=== PATIENT | female | born 1975 | race Caucasian/White ===

== ENCOUNTER 2018-06-01 04:08 | Emergency (ER) | payer MEDICAID, OTHER ==
[~2018-06-01] VITALS: Ht 149.9 cm; Wt 76.4 kg
[2018-06-01 04:10] VITALS: Ht 149.9 cm; Wt 76.4 kg
[2018-06-01] MEDS ORDERED: SOD CHLORIDE 0.9% 1,000 ML IV STA (04:52)
[2018-06-01] MEDS ORDERED: morphine 4 MG/ML VIAL IV STA (04:52)
[2018-06-01] MEDS ORDERED: ONDANSETRON 4 MG INJ IV STA (04:52)
[2018-06-01] MEDS ORDERED: ALKA PO (05:30)
[2018-06-01] MEDS ORDERED: HYDR-4011 PO (05:30)
[2018-06-01] MEDS ORDERED: IBUP-1545 PO (05:30)
--- NOTE | 2018-06-01 05:42 | ERD ---
ER Documentation Chief Complaint Chief Complaint L flank pain rad to abd w/ n/v since 1AM HPI This is a very pleasant 42-year-old female has left flank pain rating to the abdomen with nausea vomiting since 9 AM. Pain is mild to moderate in nature, colicky in nature with no exacerbating alleviating factors and came on suddenly late. Patient denies ever having this pain before. ROS All systems reviewed and are negative except as per history of present illness. Medications Home Meds Reported Medications Aspirin ([place]) 1 Tab Tabef, 1 TAB PO, TAB 06/01/18 Ibuprofen* (Ibuprofen*) 800 Mg Tab, 800 MG PO Q6H PRN for PAIN, TAB 06/01/18 Ibuprofen* (Ibuprofen*) 800 Mg Tab, 800 MG PO Q6H PRN for PAIN, TAB 06/01/18 Hydrocodone/Acetaminophen ([place] 5-325 Tablet) 1 Each Tablet, 1 EACH PO, TAB 06/01/18 Allergies Allergies: Coded Allergies: No Known Allergy (Unverified , 06/01/18) PMhx/Soc Medical and Surgical Hx: pt denies Medical Hx History of Surgery: Yes ( x2) Anesthesia Reaction: No Hx Neurological Disorder: No Hx Respiratory Disorders: No Hx Cardiac Disorders: No Hx Miscellaneous Medical Probl: No Hx Alcohol Use: No Hx Substance Use: No Hx Tobacco Use: No Smoking Status: Never smoker Physical Exam Vitals Vital Signs Date Temp Pulse Resp B/P (MAP) Pulse Ox O2 O2 Flow FiO2 Time Delivery Rate 06/01/18 97.5 93 18 137/91 100 04:10 (106) Physical Exam Const: No acute distress Head: Atraumatic Eyes: Normal Conjunctiva ENT: Normal External Ears, Nose and Mouth. Neck: Full range of motion. No meningismus. Resp: Clear to auscultation bilaterally Cardio: Regular rate and rhythm, no murmurs Abd: Soft, non tender, non distended. Normal bowel sounds Skin: No petechiae or rashes Back: No midline or flank tenderness Ext: No cyanosis, or edema Neur: Awake and alert Psych: Normal Mood and Affect Result Diagram: 06/01/18 0505 06/01/18 0505 Results 24 hrs Laboratory Tests Test 06/01/18 05:05 White Blood Count 11.4 10^3/ul Red Blood Count 4.25 10^6/ul Hemoglobin 13.2 g/dl Hematocrit 38.4 % Mean Corpuscular Volume 90.4 fl Mean Corpuscular Hemoglobin 31.1 pg Mean Corpuscular Hemoglobin Concent 34.4 g/dl Red Cell Distribution Width 12.2 % Platelet Count 299 10^3/UL Mean Platelet Volume 9.7 fl Immature Granulocytes % 0.300 % Neutrophils % 81.4 % Lymphocytes % 13.2 % Monocytes % 4.4 % Eosinophils % 0.3 % Basophils % 0.4 % Nucleated Red Blood Cells % 0.0 /100WBC Immature Granulocytes # 0.030 10^3/ul Neutrophils # 9.3 10^3/ul Lymphocytes # 1.5 10^3/ul Monocytes # 0.5 10^3/ul Eosinophils # 0.0 10^3/ul Basophils # 0.0 10^3/ul Nucleated Red Blood Cells # 0.0 10^3/ul Urine Color YELLOW Urine Clarity CLEAR Urine pH 6.0 Urine Specific [place] 1.016 Urine Ketones NEGATIVE mg/dL Urine Nitrite NEGATIVE mg/dL Urine Bilirubin NEGATIVE mg/dL Urine Urobilinogen NEGATIVE mg/dL Urine Leukocyte Esterase NEGATIVE Ziggy/ul Urine Microscopic RBC 153 /HPF Urine Microscopic WBC 3 /HPF Urine Squamous Epithelial Cells FEW /HPF Urine Mucus FEW /HPF Urine Hemoglobin 3+ mg/dL Urine Glucose NEGATIVE mg/dL Urine Total Protein NEGATIVE mg/dl Sodium Level 144 mmol/L Potassium Level 4.7 mmol/L Chloride Level 104 mmol/L Carbon Dioxide Level 30 mmol/L Anion Gap 10 Blood Urea Nitrogen Pending Creatinine Pending Est Glomerular Filtrat Rate mL/min Pending Glucose Level Pending Calcium Level Pending Total Bilirubin Pending Direct Bilirubin Pending Indirect Bilirubin Pending Aspartate Amino Transf (AST/SGOT) Pending Alanine Aminotransferase (ALT/SGPT) Pending Alkaline Phosphatase Pending Total Protein Pending Albumin Pending Globulin Pending Albumin/Globulin Ratio Pending Lipase Pending Current Medications Medications Dose Sig/[place] Start Time Status Last (Trade) Ordered Route PRN Stop Time Admin Dose Reason Admin Sodium 1,000 ml @ Q1H STAT 06/01/18 06/01/18 Chloride 1,000 mls/hr IV 04:52 06/01/18 05:08 05:51 Morphine 4 mg ONCE STAT 06/01/18 DC 06/01/18 Sulfate IV 04:52 1/2/19 05:08 (morphine) 04:54 Ondansetron 4 mg ONCE STAT 06/01/18 DC 06/01/18 HCl (Zofran IV 04:52 06/01/18 05:08 Inj) 04:54 Procedures/MDM Medical decision m[age]-year-old female with likely renal colic at this point clinically stable for outpatient management. Patient will be discharged home with Naprosyn and Zofran. Follow with PCP. Return for worsening symptoms. Departure Diagnosis: Primary Impression: Flank pain Condition: Stable SHAWNA HEBERT Jun 01, 2018 05:42
[2018-06-01] MEDS ORDERED: SULF1TAB31 PO (05:43)
[2018-06-01] MEDS ORDERED: ONDA4TAB14 PO (05:43)
[2018-06-01] MEDS ORDERED: NAPR-985 PO (05:43)
[2018-06-01 07:43] VITALS: BP 115/74; PULSE 74; RESP 17
== END 2018-06-01 07:44 | disposition home or self-care (01) ==
LOC: E/R 04:08
DX: R10.9 Unspecified abdominal pain (principal); Z79.82 Long term (current) use of aspirin
CPT/HCPCS: 36415; 74176; 80053; 81001; 81025; 83690; 84703; 85025; 96374; 96375; J2270; J2405; J7030; Z7502